=== PATIENT | female | born 1935 | race Hispanic/Latino ===

== ENCOUNTER → 2022-06-13 | Outpatient (CLI) | payer MEDICARE ==
[~2022-06-13] MED LIST: IOPAMIDOL 370 MG/ML 100 ML INFUS..BTL INJ ONE
[2022-06-13 13:22] LABS: CREATININE, SERUM 0.89 mg/dL (0.57-1.11)
== END ==
LOC: CT 11:36
PROVIDERS: ATTEND Urology
DX: D41.01 Neoplasm of uncertain behavior of right kidney (principal)
CPT/HCPCS: 36415; 74170; 82565; 84520; Q9967